=== PATIENT | female | born 1965 | race Two or more races ===

== ENCOUNTER 2025-03-02 12:26 | Emergency (ER) | payer OTHER ==
[~2025-03-02] VITALS: Ht 157.5 cm; Wt 54.4 kg
[2025-03-02] MEDS ORDERED: CIPROFLOXACIN IN 5 % DEXTROSE 400 MG/200 ML PIGGYBAG IV STA (14:07)
[2025-03-02] MEDS ORDERED: METRONIDAZOLE/SODIUM CHLORIDE 500 MG/100 ML PIGGYBACK IV STA (14:08)
[2025-03-02] MEDS ORDERED: CIPROFLOXACIN IN 5 % DEXTROSE 400 MG/200 ML PIGGYBAG IV ONE (14:11)
[2025-03-02] MEDS ORDERED: METRONIDAZOLE/SODIUM CHLORIDE 500 MG/100 ML PIGGYBACK IV ONE (14:11)
[2025-03-02 14:37] LABS: HEMATOCRIT 40.6 % (36.0-45.00); MEAN CELL VOLUME 92.6 fL (80.00-100.00); MEAN CORPUSCULAR HGB CONC 34.5 g/dl (32.0-36.0); PLATELET COUNT 246 K/uL (150-450); RED BLOOD COUNT 4.39 M/uL (4.00-6.00); RED CELL DISTRIBUTION WIDTH 12.5 % (11.5-14.5)
[2025-03-02 15:00] LABS: CALCIUM 9.7 mg/dL (8.5-10.1); CREATININE SERUM 0.78 mg/dL (0.55-1.02); GFR 75.33; POTASSIUM 3.62 mEq/L (3.5-5.1)
[2025-03-02 16:32] LABS: URINE APPEARANCE Clear; URINE BILIRRUBIN Negative (NEGATIVE); URINE BLOOD Negative; URINE COLOR Yellow; URINE GLUCOSE Negative (NEGATIVE); URINE KETONE Negative (NEGATIVE); URINE LEUKOCYTE Negative; URINE NITRATE Negative; URINE PROTEIN Negative (NEGATIVE); URINE UROBILINOGEN 0.2 E.U./dl
[2025-03-02 16:37] LABS: URINE BACTERIA 29.3 uL (0.0-1933); URINE RBC 4.9 uL (0.0-20.8)
[2025-03-02 16:43] LABS: URINE EPITHELIAL CELLS 0.6 uL (0.0-38.8); URINE WBC 0.9 uL (0.0-23.2)
[2025-03-02] MEDS ORDERED: ZOFRAN8 MG PO (16:50)
[2025-03-02] MEDS ORDERED: CIPRO500 MG PO (16:50)
[2025-03-02] MEDS ORDERED: PEPCID AC20 MG PO (16:50)
[2025-03-02] MEDS ORDERED: METRONIDAZOLE500 MG PO (16:50)
== END 2025-03-02 17:24 | disposition home or self-care (01) ==
LOC: ER 12:27
PROVIDERS: General Practice
DX: K57.30 Diverticulosis of large intestine without perforation or abscess without bleeding (principal); D25.9 Leiomyoma of uterus, unspecified; N32.89 Other specified disorders of bladder